=== PATIENT | male | born 1980 | race Caucasian/White ===

== ENCOUNTER 2019-06-23 20:23 | Emergency (ER) | payer OTHER ==
[2019-06-23 20:55] VITALS: BMI 28.8
--- NOTE | 2019-06-23 22:38 | PDOC ---
History of Present Illness - General Chief Complaint: Pain Stated Complaint: LT LOWR ABD PAIN Time Seen by Provider: 06/23/19 22:26 History Source: Patient Exam Limitations: No Limitations - History of Present Illness Initial Comments: 06/23/19 23:07 38yo M with no significant PMH presenting to ED with complaints of LLQ pain x2d. Pt states the pain started Sunday night, is constant, crampy, does not radiate, 7/10, worsened by laying down and with movement. He has not taken anything for the pain. He went to urgent care and was told to go to the ER because he might have diverticulitis. Denies changes in bowel habits, diarrhea, constipation, nausea, vomiting, blood in the stool, fever, chills, back pain, hematuria, dysuria, testicular pain/swelling, flank pain. PMD: PSH: none Meds: none Allergies; nkda Social: occasional alcohol use Past History - Past Medical History Allergies/Adverse Reactions: Allergies Allergy/AdvReac Type Severity Reaction Status Date / Time No Known Allergies Allergy Verified 06/23/19 20:56 Home Medications: Ambulatory Orders Naproxen 500 mg PO BID #14 tablet 06/24/19 Cancer: No Cardiac Disorders: No CVA: No COPD: No - Suicide/Smoking/Psychosocial Hx Smoking History: Never smoked Review of Systems - Review of Systems Constitutional: No: Chills, Fever HEENTM: No: Symptoms Reported Respiratory: No: Symptoms reported Cardiac (ROS): No: Symptoms Reported ABD/GI: Yes: See HPI, Abdominal cramping. No: Constipated, Diarrhea, Nausea, Rectal Bleeding, Vomiting, Tarry Stools : No: Burning, Dysuria, Flank Pain, Testicular Pain Musculoskeletal: No: Back Pain, Joint Pain Integumentary: No: Symptoms Reported Neurological: No: Symptoms reported *Physical Exam - Vital Signs Last Vital Signs Temp Pulse Resp BP Pulse Ox 98.4 F 77 20 114/71 97 06/23/19 20:51 06/23/19 20:51 06/23/19 20:51 06/23/19 20:51 06/23/19 20:51 - Physical Exam General Appearance: Yes: Nourished, Appropriately Dressed. No: Apparent Distress HEENT: positive: EOMI, MARIAH, Normal ENT Inspection Neck: positive: Trachea midline, Supple Respiratory/Chest: positive: Lungs Clear, Normal Breath Sounds Cardiovascular: positive: Regular Rhythm, Regular Rate, S1, S2. negative: Edema , JVD, Murmur Vascular Pulses: Dorsalis-Pedis (R): 2+, Doralis-Pedis (L): 2+ Gastrointestinal/Abdominal: positive: Normal Bowel Sounds, Soft, Tenderness (LLQ ). negative: Distended, Guarding, Rebound Musculoskeletal: negative: CVA Tenderness Extremity: positive: Normal Capillary Refill. negative: Pedal Edema, Swelling Integumentary: positive: Normal Color, Dry, Warm Neurologic: positive: welfare officer II-XII NML intact, Fully Oriented, Alert, Normal Mood/ Affect, Normal Response, Motor Strength 03/16 ED Treatment Course - LABORATORY CBC & Chemistry Diagram: 06/23/19 23:34 06/23/19 23:34 Medical Decision Making - Medical Decision Making 06/23/19 23:11 38yo M with no significant PMH presenting to ED with complaints of LLQ pain x2d. Pt states the pain started Sunday night, is constant, crampy, does not radiate, 7/10, worsened by laying down and with movement. He has not taken anything for the pain. He went to urgent care and was told to go to the ER because he might have diverticulitis. Denies changes in bowel habits, diarrhea, constipation, nausea, vomiting, blood in the stool, fever, chills, back pain, hematuria, dysuria, testicular pain/swelling, flank pain. Vitals wnl PE: LLQ tenderness, no rebound, no guarding, negative rosving ddx includes but not limited to colitis, appendicitis, diverticulitis, nephrolithiasis, uti. Low suspicion for acute abdomen because patient has pain without other abdominal symptoms and no surgical history. will order labs iv fluids, ofirmev CTAP 06/24/19 01:[address]: Normal liver, gallbladder, pancreas, spleen, adrenal glands and kidneys. The stomach and abdominal small and large bowel are normal. There is no aortic aneurysm. There is no significant retroperitoneal lymphadenopathy. The pelvic small and large bowel are normal. There is a small focus of inflammation anterior to the rectosigmoid junction with a center of fat, likely representing epiploic appendagitis. The appendix is normal. The urinary bladder and prostate gland are normal. No pelvic free fluid is identified. pt still uncomfortable, will order toradol 15mg. Pt is tolerating po, normal labs, normal vitals. safe for dc home. will give referral to [facility] and surgery referral. Rx for naproxen sent to pharmacy. 06/24/19 01:53 UA was placed in quang and sent by me however lab says it was not received. 06/24/19 02:03 *DC/Admit/Observation/Transfer Diagnosis at time of Disposition: Epiploic appendagitis - Discharge Dispostion Disposition: HOME Condition at time of disposition: Good Decision to Admit order: No - Prescriptions Prescriptions: Naproxen 500 mg PO BID #14 tablet - Referrals Referrals: [facility] – [place] [facility] [Provider Group] Rashaun Pascual MD [Staff Physician] - - Patient Instructions Additional Instructions: You were seen in the emergency room today for abdominal pain. The CT scan shows epiploic appendagitis. This is managed by controlling the pain. A prescription for Naproxen was sent to your pharmacy. Take as directed. I recommend making an appointment with your primary care doctor. A referral to surgery is also provided below. Keep yourself well hydrated. Please come back to the emergency room if you develop fever, start vomiting, have diarrhea or blood in the stool, are unable to have bowel movements, if pain worsens or if any new concerning symptom develops. Thank you - Post Discharge Activity
[2019-06-23] MEDS ORDERED: SODIUM CHLORIDE 1,000 ML IV STA (22:41)
[2019-06-23] MEDS ORDERED: ACETAMINOPHEN 1000 MG/100 ML VIAL (NON FORMULARY) IVPB ONE (22:41)
[2019-06-23 23:41] LABS: BASO % 0.9 % (0-2.0); EOS % 1.5 % (0-4.5); LYMPH % 34.5 % (8-40); MCH 28.7 pg (25.7-33.7); MEAN CELL VOLUME 82.1 fl (80-96); MEAN PLT VOLUME 8.6 fl (7.5-11.1); MONO % 7.5 % (3.8-10.2); NEUT % 55.6 % (42.8-82.8); PLATELET COUNT 206 K/MM3 (134-434); RBC 5.23 M/mm3 (4.00-5.60); RDW 13.9 % (11.9-15.9); WHITE BLOOD COUNT 7.5 K/mm3 (4.0-10.0)
[2019-06-23] MEDS ORDERED: ACETAMINOPHEN INJECTION 100 ML IVPB ONE (23:43)
--- NOTE | 2019-06-23 23:45 | PDOC ---
Documentation entered by Kiana Chowdhury SCRIBE, acting as scribe for Rashaun Rdz MD. Rashaun Rdz MD: This documentation has been prepared by the talhaibe, Kiana Chowdhury SCRIBE, under my direction and personally reviewed by me in its entirety. I confirm that the documentation accurately reflects all work, treatment, procedures, and medical decision making performed by me. Attending Attestation - Resident Resident Name: LeahMalaika - ED Attending Attestation I have performed the following: I have examined & evaluated the patient, The case was reviewed & discussed with the resident, I agree w/resident's findings & plan, Exceptions are as noted - HPI HPI: 06/23/19 23:20 The patient is a 38-year-old male, with no past medical history, who presents to the ED with 2 days of left lower quadrant pain. The patient describes the pain as constant, crampy in sensation, 7/10 in severity, nonradiating, and exacerbated with laying down and with movement. The patient denies fevers, chills, nausea, vomiting, or diarrhea. Denies any chest pain, palpitations or shortness of breath. Denies any weakness, dizziness , or changes in strength or sensation. - Physicial Exam PE: 06/23/19 23:20 GENERAL: Awake, alert, and fully oriented, in no acute distress. HEAD: No signs of trauma EYES: PERRLA, EOMI, sclera anicteric, conjunctiva clear ENT: Auricles normal inspection, hearing grossly normal, nares patent, oropharynx clear without exudates. Moist mucosa NECK: Nontender, no stepoffs, Normal ROM, supple, no lymphadenopathy, JVD, or masses LUNGS: Breath sounds equal, clear to auscultation bilaterally. No wheezes, and no crackles HEART: Regular rate and rhythm, normal S1 and S2, no murmurs, rubs or gallops ABDOMEN: + LLQ TTP, normoactive bowel sounds. No guarding, no rebound. No masses EXTREMITIES: Normal range of motion, no edema. No clubbing or cyanosis. No cords, erythema, or tenderness NEUROLOGICAL: Cranial nerves II through XII intact. 5/5 strength and sensation in all extremities, Normal speech, normal gait, normal cerebellar function SKIN: Warm, Dry, normal turgor, no rashes or lesions noted. : normal scrotal exam, no lesions, no masses, no tenderness - Medical Decision Making 06/24/19 00:31 38 M with LLQ pain. Will r/o colitis vs diverticulitis. - Labs - CTAP 06/24/19 01:[address] read shows epiploic appendagitis Will tx with NSAIDs Pt is well appearing, with normal vitals. Clinically stable for DC at this time. I discussed the physical exam findings, ancillary test results and final diagnoses with the patient. I answered all of the patient's questions. The patient was satisfied with the care received and felt comfortable with the discharge plan and treatment plan. The patient agrees to follow up with the primary care physician within 24-72 hours.
[2019-06-24 00:07] LABS: ALBUMIN 4.4 g/dl (3.4-5.0); BILIRUBIN,TOTAL 0.6 mg/dL (0.2-1); BLOOD UREA NITROGEN 17.8 mg/dL (7-18); CALCIUM 9.6 mg/dL (8.5-10.1); CREATININE 1.2 mg/dL (0.55-1.3)
[2019-06-24] MEDS ORDERED: KETOROLAC TROMETHAMINE 30 MG/1 ML VIAL IVPUSH ONE (01:36)
[2019-06-24] MEDS ORDERED: KETOROLAC TROMETHAMINE 15 MG/ML VIAL ONE (01:57)
[2019-06-24 02:07] VITALS: BP 127/81; PULSE 68; TEMP 98.8
[2019-06-24 02:59] LABS: PH,URINE 5.5 (5.0-8.0); URINE APPEARANCE Error; URINE BILIRUBIN NEGATIVE (NEGATIVE); URINE COLOR YELLOW; URINE GLUCOSE (UA) NEGATIVE (NEGATIVE); URINE KETONE NEGATIVE (NEGATIVE); URINE LEUK ESTERASE NEGATIVE (NEGATIVE); URINE NITRITE NEGATIVE (NEGATIVE); URINE PROTEIN NEGATIVE (NEGATIVE)
== END 2019-06-24 02:05 | disposition home or self-care (01) ==
LOC: JER 20:23
PROC: 3E0333Z Introduction of Anti-inflammatory into Peripheral Vein, Percutaneous Approach (ICD-10-PCS; principal; 2019-06-23)
PROC: 3E033NZ Introduction of Analgesics, Hypnotics, Sedatives into Peripheral Vein, Percutaneous Approach (ICD-10-PCS; 2019-06-23)
PROC: 3E0337Z Introduction of Electrolytic and Water Balance Substance into Peripheral Vein, Percutaneous Approach (ICD-10-PCS; 2019-06-23)
DX: K63.89 Other specified diseases of intestine (principal)
CPT/HCPCS: 36415; 74177-TC; 80053; 81003; 83690; 85025; 99283-25; J0131; J7030